=== PATIENT | female | born 1990 | race Hispanic/Latino ===

== ENCOUNTER 2019-09-26 22:51 | Emergency (ER) | payer OTHER ==
[~2019-09-26] VITALS: Ht 162.6 cm; Wt 67.0 kg
[2019-09-26] MEDS ORDERED: NEXI20CA33 PO (22:57)
[2019-09-26] MEDS ORDERED: GI COCKTAIL 50ML BTL(HYOSCYAMINE/MAALOX/LIDOCAINE VISCOUS)(1:3:1) PO ONE (23:15)
[2019-09-26] MEDS ORDERED: ONDANSETRON 4MG/2ML VIAL IV ONE (23:15)
[2019-09-26] MEDS ORDERED: NS 1,000 ML IV ONE (23:15)
[2019-09-26] MEDS ORDERED: ISOVUE-370 76% 100ML VIAL As Ordered ONE (23:31)
[2019-09-27 00:32] LABS: BASO % 0.4 % (0.0-1.0); EOS # 0.4 10^3/uL (0.0-0.5); EOS % 5.9 % (0.0-3.0); HEMATOCRIT 38.8 % (36.0-47.0); HEMOGLOBIN 12.8 g/dl (12.0-15.5); LYMPH # 2.4 10^3/uL (1.5-5.0); LYMPH % 33.1 % (24.0-44.0); MEAN CORPUSCULAR HEMOGLOBIN 29.3 pg (27.0-33.0); MEAN CORPUSCULAR VOLUME 88.8 fl (80.0-96.0); MONO # 0.5 10^3/uL (0.0-0.8); MONO % 7.2 % (0.0-5.0); NEUTROPHILS # 3.8 10^3/uL (1.5-8.5); NEUTROPHILS % 53.1 % (36.0-66.0); PLATELET COUNT, AUTOMATED 230 10^3/uL (150-450); RED BLOOD COUNT 4.37 10^6/uL (4.00-5.40); WHITE BLOOD COUNT 7.1 10^3/uL (4.0-10.0)
[2019-09-27 01:02] LABS: ALBUMIN 3.9 GM/DL (3.2-5.2); ALT/SGPT 22 U/L (12-78); BILIRUBIN,DIRECT < 0.1 MG/DL (0.0-0.2); BILIRUBIN,TOTAL 0.3 MG/DL (0.2-1.0); BLOOD UREA NITROGEN 18 MG/DL (7-18); CALCIUM LEVEL 9.3 MG/DL (8.5-10.1); CARBON DIOXIDE LEVEL 28 MEQ/L (21-32); CHLORIDE LEVEL 107 MEQ/L (98-107); CREATININE FOR GFR 0.81 MG/DL (0.55-1.30); GLOMERULAR FILTRATION RATE > 60.0 (>60); GLUCOSE, FASTING 87 MG/DL (70-100); POTASSIUM SERUM 3.8 MEQ/L (3.5-5.1); SODIUM LEVEL 139 MEQ/L (136-145)
[2019-09-27 01:03] LABS: LIPASE 118 U/L (73-393)
[2019-09-27 01:04] LABS: HCG, SERUM QUALITATIVE NEGATIVE (NEGATIVE)
--- NOTE | 2019-09-27 01:37 | REPVR ---
PROCEDURE INFORMATION: Exam: CT Abdomen And Pelvis With Contrast Exam date and time: 09/26/2019 11:03 PM Age: 28 years old Clinical indication: Abdominal pain; Generalized; Additional info: Epigastric pain, mild tender rlq TECHNIQUE: Imaging protocol: Computed tomography of the abdomen and pelvis with intravenous contrast. Radiation optimization: All CT scans at this facility use at least one of these dose optimization techniques: automated exposure control; mA and/or kV adjustment per patient size (includes targeted exams where dose is matched to clinical indication); or iterative reconstruction. Contrast material: ISO; Contrast volume: 100 ml; Contrast route: AC; COMPARISON: No relevant prior studies available. FINDINGS: Liver: Normal. No mass. Gallbladder and bile ducts: Normal. No calcified stones. No ductal dilation. Pancreas: Normal. No ductal dilation. Spleen: Normal. No splenomegaly. Adrenals: Normal. No mass. Kidneys and ureters: Normal. No hydronephrosis. Stomach and bowel: Moderate stool in the colon. Appendix: Borderline enlarged appendix measuring up to 7 mm in diameter without other specific signs of acute appendicitis.. Intraperitoneal space: Trace nonspecific fluid in the pelvis. Vasculature: Unremarkable. No abdominal aortic aneurysm. Lymph nodes: Unremarkable. No enlarged lymph nodes. Bladder: Distended urinary bladder. Reproductive: Unremarkable as visualized. Bones/joints: Unremarkable. No acute fracture. Soft tissues: Unremarkable. IMPRESSION: Borderline enlarged appendix measuring up to 7 mm in diameter without other specific signs of acute appendicitis. Trace nonspecific fluid in the pelvis. No hydronephrosis or nephrolithiasis bilaterally. Electronically signed by: Jonnie Mak On 09/27/2019 01:37:10 AM
[2019-09-27 02:00] VITALS: BP 98/61
== END 2019-09-27 02:28 | disposition home or self-care (01) ==
LOC: M ED 22:51
DX: R10.13 Epigastric pain (principal)
CPT/HCPCS: 74177; 80048; 80076; 83690; 84703; 85025; 96361; 96374; 99284; J2405; Q9967

== ENCOUNTER 2020-01-01 07:28 | Day surgery (SDC) | payer OTHER ==
[~2020-01-01] VITALS: Ht 162.6 cm; Wt 66.2 kg
[~2020-01-01 07:28] MED LIST: NEXI20CA33 PO; NS 1,000 ML IV ONE
[2020-01-01] MEDS ORDERED: propofoL 200 MG/20 ML VIAL As Ordered ONE (08:05)
[2020-01-01] MEDS ORDERED: LIDOCAINE 2% 100MG/5ML SDV (FOR ANES.) As Ordered ONE (08:05)
[2020-01-01] MEDS ORDERED: fentaNYL 100 MCG/2 ML INJECTION (J3010) As Ordered ONE (08:05)
--- NOTE | 2020-01-01 08:17 | ROOR ---
Patient Name: Thiago Quigley Procedure Date: 01/01/2020 8:02 AM Date of : 1990 Age: 29 Room: [facility] Gender: Female Note Status: Finalized Procedure: Upper Endoscopy + Biopsies Indications: Epigastric abdominal pain, Heartburn Providers: Hector Araujo MD Referring MD: TREVOR MURRAY MD Requesting Provider: Medicines: Monitored Anesthesia Care Complications: No immediate complications. Procedure: Pre-Anesthesia Assessment: - The heart rate, respiratory rate, oxygen saturations, blood pressure, adequacy of pulmonary ventilation, and response to care were monitored throughout the procedure. The Endoscope was introduced through the mouth, and advanced to the second part of duodenum. The upper GI endoscopy was accomplished without difficulty. The patient tolerated the procedure well. Findings: The Z-line was regular and was found 40 cm from the incisors. Multiple biopsies were obtained with cold forceps for evaluation to rule out Leung's Esophagus randomly at the gastroesophageal junction. No other significant abnormalities were identified in a careful examination of the stomach. Biopsies were taken with a cold forceps in the gastric antrum for Helicobacter pylori testing. The exam of the duodenum was otherwise normal. Impression: - Z-line regular, 40 cm from the incisors. - Multiple biopsies were obtained at the gastroesophageal junction. - Biopsies were taken with a cold forceps for Helicobacter pylori testing. - The examination was otherwise normal. Recommendation: - Patient has a contact number available for emergencies. The signs and symptoms of potential delayed complications were discussed with the patient. Return to normal activities tomorrow. Written discharge instructions were provided to the patient. - High fiber diet. - Discharge patient to home. - Follow an antireflux regimen. - Continue present medications. - Await pathology results. - Telephone GI clinic for pathology results in 1 week. - Return to referring physician. - The findings and recommendations were discussed with the patient. Hector Araujo MD Hector Araujo MD 01/01/2020 8:17:23 AM Electronically signed by Hector Araujo MD Number of Addenda: 0 Note Initiated On: 01/01/2020 8:02 AM Estimated Blood Loss: Estimated blood loss: none.
[2020-01-01 08:48] VITALS: BP 80/53
== END 2020-01-01 08:55 | disposition home or self-care (01) ==
LOC: M OPP 07:28
PROVIDERS: ATTEND Internal Medicine Gastroenterology
DX: K29.50 Unspecified chronic gastritis without bleeding (principal); K21.9 Gastro-esophageal reflux disease without esophagitis; R10.13 Epigastric pain; E06.3 Autoimmune thyroiditis; Z79.899 Other long term (current) drug therapy
CPT/HCPCS: 43239; 88305; 88313; J3010